=== PATIENT | female | born 1985 | race Two or more races ===

== ENCOUNTER 2024-12-01 20:40 | Inpatient (IN) | payer MEDICAID, SELFPAY ==
[2024-12-01] VITALS (22 sets, daily range): BP systolic 97–120; BP diastolic 54–67; PULSE 65–90; TEMP 36.9; O2SAT 92–99; BMI 24.8
[2024-12-01] MEDS: RINGERS LACTATED 1000 ML 1,000 ML 100 ML IV (21:04)
--- NOTE | 2024-12-01 21:30 | XR_ITS ---
Examination: Complete OB ultrasound greater than 14 weeks Date and time of exam: December 01, 2024 2127 hours INDICATIONS: Post dates Findings: Viable intrauterine single fetus with single amniotic sac presentation cephalic Cardiac motion 144 BPM Placenta anterior grade 3 Umbilical cord insertion 3 vessel seen Amniotic fluid index 0.6 cm spine maternal left Ovary is obscured by bowel gas. Composite estimated gestational age based on BPD, head circumference, abdominal circumference, femur length is 37 weeks 2 days Estimated weight 3094 g. Survey of intracranial anatomy, spinal anatomy, abdominal anatomy, four-chamber heart performed with no abnormalities identified. Impression: Viable intrauterine gestation cephalic presentation Amniotic fluid index 0.6 cm.
--- NOTE | 2024-12-01 21:36 | PD.LDHP ---
Documentation for date of: 12/01/24 OB Labor/Induct. HPI History of Present Illness Chief complaint: 39 y/o 40w 4d presents for IOL due to AMA : 3 Para: 1 Term pregnancies: 1 pregnancies: 0 Living children: 1 History of Abortions: Spontaneous and Elective: 1 History of Vaginal deliveries: 1 History of sections: No History of : No Date of last menstrual period: 02/21/24 GEOVANNA: 11/27/24 Gestational Age (weeks): 40 Gestational Age (days): 4 Gestational age based on last menstrual period: 40 Indication for induction: post dates and other (AMA) History of present illness: 39 y/o 40w 4d presents for IOL due to AMA and postdates. 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 Pt's has been complicated by AMA and anemia. GBS is negative. Cervix is 1/50/-3 vertex. EFW 3200g. Pt has a hx of nvdx1 8 years ago and SABx1. History of Present Dating criteria: LMP confirmed by 1st trimester US Adequate Care: Yes Ultrasounds: normal 1st trimester US and normal mid trimester US Obstetrical complications: other (AMA and anemia) Labs Maternal Blood Type: O Pos Labs: Positive: Rubella Titre, Negative: RPR, Hepatitis B, HIV, Chlamydia, Gonorrhea and Group Beta Strep and Unknown: Herpes Type 1, Herpes Type 2 and Covid-19 Review of Systems Review of Systems Systems Reviewed: All systems reviewed, normal except as documented Past Medical History Surgical History SURGICAL: Negative Section Meds Home Medications and Allergies Allergies Allergy/AdvReac Type Severity Reaction Status Date / Time No Known Allergies Allergy Verified 12/01/24 20:49 OB Exam Physical Exam Vital signs: Pulse BP Pulse Ox 80 120/59 L 96 12/01/24 20:55 12/01/24 20:55 12/01/24 21:33 Constitutional Constitutional: no acute distress Routine HEENT Exam Head: Present normocephalic and atraumatic Eye: Present EOMI, PERRL and normal accommodation ENT: Present mucous membranes moist Routine Neck Exam Neck: Present full ROM Routine Respiratory Exam Respiratory: Absent respiratory distress Routine Cardiovascular Exam Cardiovascular: Present RRR Routine Abdominal Exam Abdominal: Present soft Comments: Gravid Uterus EFW 3200g Routine Exam External: Present normal urethra appearance; Absent lesions or lacerations Detailed Labor and Delivery Exam Dilation (cm): 1 Effacement (%): 50 Cervix position: posterior station: -3 Consistency: soft Presentation: Vertex (Per RN exam) Membranes: intact Baseline heart rate: 130 monitor accelerations: 15x15 monitor decelerations: None social insurance administrator variability: Moderate (11-25) Contraction frequency (min): none Routine Extremities Exam Extremities: Present full ROM Routine Back/Spine/Pelvis Exam Back/Spine: Present full ROM Routine Skin Exam Skin: Present intact, dry and warm Routine Neurological Exam Neurological: Present alert, oriented X3 and CN II-XII intact Routine Psychiatric Exam Psychiatric: Present normal affect and normal thought process OB Results Labs 12/01/24 21:04 OB Assessment & Plan Assessment and Plan (1) Encounter for induction of labor: Status: Acute (2) AMA (advanced maternal age) primigravida 35+: Status: Acute (3) Post term over 40 weeks: Status: Acute (4) Anemia affecting in third trimester: Status: Acute Additional Plan Induction method: per misoprostol protocol Plan: induction, anticipate NVD and consult prn Additional Plan Comment: Routine admit orders Consult anesthesia for an epidural Continuous EFM Ordered US to confirm presentation and EFW (2) AMA (advanced maternal age) primigravida 35+ Qualifiers: Trimester: third trimester Qualified Code(s): O09.513 - Supervision of elderly primigravida, third trimester
[2024-12-01 21:53] LABS: Basophils % (Auto) 0 % (0-2.5); Eosinophils # (Auto) 0.1 Thou/mm3 (0.0-0.5); Eosinophils % (Auto) 2 % (0-10); Hematocrit 31.6 % (36.0-46.0); Hemoglobin 11.3 g/dL (12.0-16.0); Immature Granulocytes % (Auto) 1 % (0-0); Immature Granulocytes Auto 0.04 Thou/mm3 (0.00-0.00); Lymphocytes # (Auto) 1.6 Thou/mm3 (1.0-4.8); Lymphocytes % (Auto) 22 % (10-50); Mean Corpuscular HGB Conc 35.8 g/dl (31.0-37.0); Mean Corpuscular Hemoglobin 32.2 pg (25.0-35.0); Mean Corpuscular Volume 90 fL (80-100); Monocytes # (Auto) 0.5 Thou/mm3 (0.0-0.8); Monocytes % (Auto) 7 % (0-12); Neutrophils % (Auto) 69 % (37-80); Nucleated Red Blood Cell % 0 /100 WBC (0); Platelet Count 140 Thou/mm3 (140-440); Red Blood Count 3.51 Miln/mm3 (4.00-5.20); White Blood Count 7.2 Thou/mm3 (3.6-11.0)
[2024-12-01 22:25] LABS: Syphilis Nonreactive (Nonreactive)
[2024-12-02] VITALS (100 sets, daily range): BP systolic 101–189; BP diastolic 56–93; PULSE 66–172; RESP 16–18; TEMP 36.4–37; O2SAT 82–100
[2024-12-02 00:31] LABS: Eosinophils (Manual) 1 % (0-4); Lymphocytes (Manual) 22 % (20-44); Metamyelocytes (Manual) 1 % (0-0); Monocytes (Manual) 11 % (2-9); Neutrophils (Manual) 65 % (50-70)
[2024-12-02] MEDS: fentaNYL CIT INJ 50 mCg/ML AMP 2ML 100 MCG IVP (02:43)
[2024-12-02] MEDS: MINERAL OIL 30 ML UDC TOP (05:17)
--- NOTE | 2024-12-02 05:58 | PC.RT ---
RT on delivery arrived at 04:54, relieved by RT don at 05:55.
[2024-12-02] MEDS: OXYTOCIN in NS 20 units 20 UNIT/1,000 ML BAG 125 UNIT IV (06:22)
[2024-12-02] MEDS: BENZO/LANO/ALOE (Dermoplast) 60 GM CAN 1 SPRAY TOP (06:24)
[2024-12-02] MEDS: TRANEXAMIC ACID 1,000 MG IVPB 1,000 MG/100 ML BAG 200 MG IV ×3 (06:29→13:50)
[2024-12-02] MEDS: metroNIDAZOLE 250 MG TABLET 500 MG PO (07:33)
--- NOTE | 2024-12-02 08:49 | PD.LDDELS ---
Vacuum Assisted Delivery Vacuum Application Vacuum type:: Mityvac Vacuum application:: flexing median Total vacuum time (min):: 1 Maximum pressure (cm Hg):: 45 Cup Placement Flexion point identified:: Yes Cup approp. for head position:: Yes Maternal tissue excluded:: Yes Vacuum Procedure Number of pulls (contractions):: 2 Number of pop-offs:: 1 Recommended range maintained:: Yes Vacuum reduced between pulls:: Yes Advancement made each pull:: Yes Vacuum successful:: Yes Data (Pérez) Data Hx Section: No : 3 Term: 1 : 0 Livin Abortions: Spontaneous & Theraputic: 1 Delivery Data (Pérez) Labor Data Initiation of labor: Spontaneous Induction/Augmentation Agent: None ROM date: 12/02/24 ROM time: 05:04 Amniotic membrane rupture type: Spontaneous Amniotic fluid description: Moderate Meconium Delivery Data Onset of labor date: 12/02/24 Onset of labor time: 04:24 Complete dilation date: 12/02/24 Complete dilation time: 05:04 Chandler delivery date: 12/02/24 delivery time: 06:01 Gestational age (weeks): 40 Gestational age (days): 5 Placenta delivery date: 12/02/24 Placenta delivery time: 06:05 Stage 1 total time: Labor - Stage 1 Duration 40 minutes Delivered by: Delivery nurse: Cecilia KOVACS [facility] nurse: Florence KOVACS Support person(s) at delivery: FOB Other staff at delivery: Iván Blanca CNM Delivery Method Delivery method: Operative Vaginal Delivery Presentation: Vertex Anesthesia Type Anesthesia Type: Epidural Placenta Placenta delivery description: Spontaneous Cord blood sent to lab: Yes cord blood collection: Cord Blood Type Episiotomy Episiotomy description: None Perineal repair Sutures used for repair: 3.0 Vicryl EBL Estimated blood loss (ml): 400 Umbilical Cord cord description: 3 Vessels, Nuchal Cord and Tight Chandler Data (Pérez) Data order: 1 Chandler's gender: Male Identification band number: [id number] weight (gms): 2850 g Weight (pounds): 6 lbs and 4.5 ozs Chandler length: 50.5 cm 1 minute: 8 5 minutes: 9 Diagnosis Additional Assessment inspite of repeated hemostatic sutures , venous superficvial bleeding continues Vaginal packing inserted for pressure Alexander placed Cefazolin 2 gm prophylactic antibiotic
[2024-12-02 12:50] LABS: Basophils % (Auto) 0 % (0-2.5); Eosinophils % (Auto) 0 % (0-10); Hematocrit 27.5 % (36.0-46.0); Immature Granulocytes % (Auto) 0 % (0-0); Immature Granulocytes Auto 0.05 Thou/mm3 (0.00-0.00); Lymphocytes % (Auto) 7 % (10-50); Mean Corpuscular HGB Conc 36.4 g/dl (31.0-37.0); Mean Corpuscular Hemoglobin 32.6 pg (25.0-35.0); Mean Corpuscular Volume 90 fL (80-100); Monocytes # (Auto) 0.7 Thou/mm3 (0.0-0.8); Monocytes % (Auto) 5 % (0-12); Neutrophils # (Auto) 11.6 Thou/mm3 (1.8-7.7); Neutrophils % (Auto) 87 % (37-80); Nucleated Red Blood Cell % 0 /100 WBC (0); Platelet Count 120 Thou/mm3 (140-440); RDW Standard Deviation 43.3 fL (36.4-46.3); Red Blood Count 3.07 Miln/mm3 (4.00-5.20); White Blood Count 13.4 Thou/mm3 (3.6-11.0)
[2024-12-02] MEDS: ONDANSETRON INJ 2 MG/ML INJ 2 ML 4 MG IV (13:37)
[2024-12-03 03:39] VITALS: BP 106/53; PULSE 69; RESP 16; TEMP 36.8; O2SAT 96
--- NOTE | 2024-12-03 07:52 | ESDS_ITS ---
DS: Providers Provider Date of admission: 12/01/24 20:40 Primary care physician: Physician No Primary/Family Admitting Provider: Morelia Shelby CNM Attending Provider on Admission: Lizabeth Patel MD Consults: 12/02/24 07:42 Referral Routine Comment: Attending Provider on DC: Morelia Shelby CNM Discharging Provider: Morelia Shelby CNM Anticipated date of discharge: 12/03/24 DS: Diagnosis Discharge Diagnosis (1) Vacuum extractor delivery, delivered: Status: Acute (2) Encounter for care of lactating mother: Status: Acute (3) Encounter for induction of labor: Status: Acute (4) AMA (advanced maternal age) primigravida 35+: Status: Acute Problem List Completed Was Problem List Reviewed/Reconciled?: Yes Summary/Hosp Course Brief History: 39 y/o 40w 4d presents for IOL due to AMA and postdates. 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 Pt's has been complicated by AMA and anemia. GBS is negative. Cervix is 1/50/-3 vertex. EFW 3200g. Pt has a hx of nvdx1 8 years ago and SABx1. 12/02/24: Vacuum vaginal delivery of a viable Male infant delivered by Dr. Patel. Pt sustained 3rd deg laceration, repaired by Dr. Patel, due to friable tissue bleeding a vaginal packing was placed in the vagina. 12/03/24: Dr. Patel removed the vaginal packing. Patient is stable and afebrile doing well and . Reports bleeding is minimal. Denies dizziness shortness of breath. Ambulating to the bathroom with no problems and voiding with no problems no bowel movement as of yet. Passing gas. Uterus is nontender fundus firm minimal lochia. Laceration is healing. Vital signs and CBC is looking good. Discharge instructions given. Patient to follow-up with Morelia Shelby CNM in 3 weeks . Peripartum Data Delivery Method: Operative Vaginal Delivery Episiotomy Description: None Laceration Description: yes and see Delivery Summary [place] 1: Gender: Male Disposition of : home Status at Discharge Cognitive/behavioral status at discharge: Alert and oriented x 3 Functional status at discharge: independent ambulation Overall status at discharge: patient is progressing back to baseline Time Spent with Patient Time attestation: Total time spent providing and/or coordinating discharge services: Time spent: Greater than 30 minutes Exam Vital Signs Temp Pulse Resp BP Pulse Ox O2 Del Method 98.3 F 69 16 106/53 L 96 Room Air 12/03/24 03:39 12/03/24 03:39 12/03/24 03:39 12/03/24 03:39 12/03/24 03:39 12/03/24 03:39 Constitutional Constitutional: no acute distress Routine HEENT Exam Head: Present normocephalic and atraumatic Eye: Present EOMI, PERRL and normal accommodation ENT: Present mucous membranes moist Routine Neck Exam Neck: Present full ROM Routine Respiratory Exam Respiratory: Present chest non-tender, lungs clear, normal breath sounds and no resp distress Routine Cardiovascular Exam Cardiovascular: Present RRR Routine Abdominal Exam Abdominal: Present soft and normoactive bowel sounds; Absent tenderness or distended Comments: Uterus nontender Fundus Routine Exam External: Present normal urethra appearance and lacerations (healing); Absent lesions Comments: [place] is normal Routine Extremities Exam Extremities: Present full ROM, pulses intact and normal capillary refill; Absent calf tenderness or tenderness Routine Back/Spine/Pelvis Exam Back/Spine: Present full ROM Routine Skin Exam Skin: Present intact, dry and warm Routine Neurological Exam Neurological: Present alert, oriented X3 and CN II-XII intact Routine Psychiatric Exam Psychiatric: Present normal affect and normal thought process Discharge Plan Plan Patient Disposition: HOME (Self Care) Patient condition on transfer: Stable Prescriptions/Referrals Prescriptions/Med Rec: New hydrocodone-acetaminophen 5-325 mg tablet 1 tab PO Q6H MDD 6 PRN (Reason: pain) Qty: 30 0RF docusate sodium [Colace] 100 mg capsule 100 mg PO BID Qty: 60 0RF lanolin 50 % ointment 1 applic topical TID PRN (Reason: skin irritation) Qty: 15 0RF Tucks (witch venita) 50 % pads, medicated 1 pad topical BID Qty: 100 0RF ibuprofen 800 mg tablet 800 mg PO Q6H MDD 4 PRN (Reason: pain) Qty: 90 0RF Discontinued prednisone 10 mg tablet 10 mg PO BID Qty: 10 0RF No Action ibuprofen 800 mg tablet 800 mg PO Q6H PRN (Reason: pain) Qty: 30 0RF methocarbamol [Robaxin-750] 750 mg tablet 750 mg PO Q8H Qty: 20 0RF Referrals: No Primary/Family,Physician [Primary Care Provider] - Patient/Caregiver Discharge Instructions Meds to Beds: No Discharge Activity: activity as tolerated Other Discharge Activity Instructions:: Follow-up with Morelia Shelby CNM in 3 week Education Materials: After a Vaginal , : Caring for Yourself Print Language: Citizen Of [place] Stand Alone Forms: [employer] Award Info., Patient Portal Info Letter Discharge Order Discharge Orders: Discharge (Routine); Ordered 12/03/24 Ordered By: Morelia Shelby Planned Discharge Date 12/03/24 (4) AMA (advanced maternal age) primigravida 35+ Qualifiers: Trimester: third trimester Qualified Code(s): O09.513 - Supervision of leo cartwright primigravida, third trimester
[2024-12-03 08:00] VITALS: BP 107/70; PULSE 75; RESP 17; TEMP 36.7; O2SAT 96
[2024-12-03] MEDS: IBUPROFEN TAB 400 MG TABLET 800 MG PO (08:07)
[2024-12-03] MEDS: DOCUSATE SOD 100 MG CAPSULE PO (08:07)
== END 2024-12-03 11:42 | disposition home or self-care (01) | DRG 542 ==
LOC: S4SX 12-02 05:55 → S4NX 12-02 08:34
PROVIDERS: Admitting Provider Nurse Practitioner Women's Health; Visit Provider Obstetrics & Gynecology
DX: O48.0 Post-term pregnancy (principal); O99.02 Anemia complicating childbirth; Z37.0 Single live birth; Z3A.40 40 weeks gestation of pregnancy; O69.1XX0 Labor and delivery complicated by cord around neck, with compression, not applicable or unspecified; O77.0 Labor and delivery complicated by meconium in amniotic fluid; Z14.1 Cystic fibrosis carrier; O72.1 Other immediate postpartum hemorrhage; O70.20 Third degree perineal laceration during delivery, unspecified
CPT/HCPCS: 36415; 59409; 76805; 85025; 86780; 86850; 86900; 86901; 94762; J2405; J2590; J2795; J3010; J3490; J7120; A9270